=== PATIENT | female | born 2000 | race Two or more races ===

== ENCOUNTER 2023-02-11 21:11 | Emergency (ER) | payer OTHER, SELFPAY ==
[2023-02-11] VITALS (10 sets, daily range): BP systolic 100–122; BP diastolic 60–90; PULSE 102–116; RESP 17–28; TEMP 37; O2SAT 100
--- NOTE | 2023-02-11 22:07 | PC.NURSE ---
When this RN brought pt into triage room to swab her for COVID, pt reports to this RN that she's having lower abdominal pain. OB notified and states they will come evaluate pt when she gets to a room. boiler installer notified. Place pt in room 9 per electrical discharge machine operator.
--- NOTE | 2023-02-11 22:13 | PC.NURSE ---
OB notified that pt has been placed in a room.
[2023-02-11 22:49] LABS: Influenza A QL RT-PCR Negative (Negative); Influenza B QL RT-PCR Negative (Negative); RSV RNA, RT-PCR Negative (Negative); SARS-CoV-2 RNA PCR Negative (Negative)
--- NOTE | 2023-02-11 23:09 | PC.NURSE ---
OB nurse evaluated patient; she states baby is doing well.
[2023-02-12] VITALS (13 sets, daily range): BP systolic 115–127; BP diastolic 50–76; PULSE 77–112; RESP 16–24; O2SAT 99–100
--- NOTE | 2023-02-12 00:09 | ED.GENADULT ---
HPI - General Adult General Chief complaint: Headache Stated complaint: Bodyaches, headache, 24 weeks Time Seen by Provider: 02/11/23 23:00 Source: patient Mode of arrival: ambulatory Limitations: no limitations History of Present Illness HPI narrative: Patient is a 22 y/o female who presents to the ED with c/o URI sx's. Patient reports she woke up this morning with myalgias, headache, mild cough, congestion, rhinorrhea, bilateral ear ache, subjective fevers. Patient is currently 24 weeks . She denies any significant abdominal pain, nausea, vomiting, vaginal bleeding. She does have some discomfort throughout lower abdomen with coughing, but denies pain at rest. She has not tried anything for her sx's. Denies any known sick contacts. Denies CP or SOB. Related Data Allergies Allergy/AdvReac Type Severity Reaction Status Date / Time No Known Allergies Allergy Unknown Verified 02/11/23 22:24 Review of Systems Review of Systems: CONSTITUTIONAL: See HPI. ENT: See HPI. CARDIOVASCULAR: Denies chest pain. RESPIRATORY: See HPI. GASTROINTESTINAL: See HPI. GENITOURINARY: Denies vaginal bleeding, dysuria or hematuria. SKIN: Denies rash or itching. MUSCULOSKELETAL: Reports myalgias. NEUROLOGIC: See HPI. All systems reviewed & are unremarkable except as noted in HPI and below PMFSH Past Medical History Medical History (Updated 02/12/23 @ 02:09 by Elsa Wells PA-C) No pertinent past medical history Surgical History Surgical History (Updated 02/12/23 @ 00:48 by Elsa Wells PA-C) No pertinent past surgical history Social History Social History (Updated 02/12/23 @ 00:48 by Elsa Wells PA-C) Smoking status: Never smoker Exam Narrative: GENERAL: Well appearing, well-nourished, non-toxic, in no acute distress. HEAD: Normocephalic, atraumatic. EYES: PERRLA/EOMI, conjunctiva clear. No drainage. ENT: Minimal posterior pharynx erythema, no tonsillar hypertrophy or exudate. Uvula midline. TMs bilaterally minimally erythematous, no bulging. No significant swelling or redness of EAC bilaterally. NECK: Supple. Mild tender bilateral lymphadenopathy, no masses. RESPIRATORY: Airway patent, respirations nonlabored. Clear to auscultation bilaterally, no rales, rhonchi, wheezing. CARDIOVASCULAR: Regular rate and rhythm without murmurs, rubs, or gallops. Radial pulses 2+ and equal bilaterally. ABDOMINAL: Soft, uterus gravid, nontender, nondistended, no hepatosplenomegaly. Normoactive BS. MUSCULOSKELETAL: Moves all extremities. Strength/ROM intact without gross deformities. SKIN: Warm, dry, normal color. No rashes. NEURO: A&O X3. Speech clear. Cranial nerves II-XII grossly intact. Steady gait. No ataxic movements. PSYCHIATRIC: Appropriate mood and affect. Normal interaction. Course Vital Signs Vital signs: Vital Signs Temperature 98.6 F 02/11/23 21:15 Pulse Rate 111 H 02/11/23 21:15 Respiratory Rate 18 02/11/23 21:15 Blood Pressure 109/60 02/11/23 21:15 Pulse Oximetry 100 02/11/23 21:15 Oxygen Delivery Room Air 02/11/23 21:15 Temperature 98.6 F 02/11/23 21:15 Pulse Rate 106 H 02/12/23 01:01 Respiratory Rate 23 H 02/12/23 01:01 Blood Pressure 115/58 L 02/12/23 01:01 Pulse Oximetry 100 02/12/23 00:01 Oxygen Delivery Room Air 02/11/23 21:15 Medical Decision Making [facility] Narrative Medical decision making narrative: Patient presented to ED with 1 day history of mild URI symptoms. Patient mildly tachycardic upon arrival, afebrile. No concerning signs or symptoms on exam. She is currently 24 weeks gestation. Patient did report having some lower abdominal pain with coughing, but denied pain at rest. She was evaluated by OB in the ED and no abnormalities noted with baby. Strong FHT. Urine without signs of infection or proteinuria. Patient's influenza, RSV, COVID-negative. Strep testing positive. Patient given fluids and Tylenol in the ED,
[2023-02-12] MEDS: SODIUM CHLORIDE 0.9% IV 1,000 ML 999 ML IV CONT ×2 (00:38→01:28)
[2023-02-12 01:47] LABS: Appearance Urine Clear (Clear); Bacteria Urine None Seen /hpf; Bilirubin Urine Negative (Negative); Color Urine Yellow (Yellow); Glucose Urine UA Negative (Negative); Ketones Urine Negative (Negative); Leukocyte Esterase Ur Trace LEU/UL (Negative); Nitrate Urine Negative (Negative); Non Pathogenic Casts 0-2; Protein Urine Negative (Negative); Specific Grav Ur 1.011 (1.001-1.035); Squamous Epithelial Cell Urine Occasional /hpf (Few); WBC Urine 0-5 /hpf
[2023-02-12 01:54] LABS: Add Urine Microscopic? YES
[2023-02-12 02:02] LABS: Strep Group A RT-PCR DETECTED (Negative)
[2023-02-12] MEDS: AMOXICILLIN 500 MG CAPSULE PO (02:18)
== END 2023-02-12 02:23 | disposition home or self-care (01) ==
PROVIDERS: Emergency Medicine; Emergency Provider Physician Assistant
DX: O99.512 Diseases of the respiratory system complicating pregnancy, second trimester (principal); J02.0 Streptococcal pharyngitis; Z3A.24 24 weeks gestation of pregnancy; Z20.822 Contact with and (suspected) exposure to COVID-19
CPT/HCPCS: 81001; 87637; 87651; 96361; 96365; 99284; A9270; J0131; J7030

== ENCOUNTER 2023-03-30 00:13 | Outpatient (CLI) | payer OTHER, SELFPAY | END 2023-03-30 01:05 | disposition home or self-care (01) | LOC: ANHOBOP 01:00 → ANHLDR 01:02 | PROVIDERS: Visit Provider Obstetrics & Gynecology | DX: O42.90 Premature rupture of membranes, unspecified as to length of time between rupture and onset of labor, unspecified weeks of gestation (principal); Z3A.00 Weeks of gestation of pregnancy not specified | CPT/HCPCS: 59025; 99199 ==

== ENCOUNTER 2023-09-03 18:17 | Emergency (ER) | payer OTHER, SELFPAY ==
[2023-09-03 20:18] LABS: Alanine Aminotransferase 19 U/L (6-35); Alkaline Phosphatase 68 U/L (38-126); Anion Gap 10 mmol/L (8-16); Aspartate Amino Transferase 23 U/L (14-36); Bilirubin,Total 0.8 mg/dL (0.2-1.3); Blood Urea Nitrogen 19 mg/dL (7-17); Calcium 9.2 mg/dL (8.4-10.2); Carbon Dioxide 23 mmol/L (22-30); Chloride 107 mmol/L (98-107); Estimated CRCL calculation 101 ml/min; Estimated Glomerular Filt Rate > 60; Glucose 92 mg/dL (65-110); Lipase 103 U/L (23-300); Potassium 4.2 mmol/L (3.4-5.0); Sodium 140 mmol/L (137-145)
[2023-09-03 20:19] LABS: Basophils Percent Auto 0.3 % (0.2-1.2); Eosinophils Absolute Auto 0.1 K/mm3 (0-0.3); Eosinophils Percent Auto 1.2 % (0-4.4); Hematocrit 43.7 % (37.0-47.0); Hemoglobin 14.3 g/dL (12.0-15.0); Immature Granulocyte Absolute 0.03 K/mm3 (0.00-0.031); Immature Granulocyte Percent A 0.3 % (0-0.5); Lymphocytes Absolute Auto 0.98 K/mm3 (0.9-3.2); Lymphocytes Percent Auto 10.7 % (18.3-44.2); Mean Corpuscular HGB Conc 32.7 g/dl (32-36); Mean Corpuscular Hemoglobin 29.5 pg (26-34); Mean Corpuscular Volume 90.1 fl (80-100); Mean Platelet Volume 9.1 fl (7.4-10.4); Monocytes Absolute Auto 0.4 K/mm3 (0.1-0.6); Monocytes Percent Auto 4.1 % (2.6-8.5); Neutrophils Absolute Auto 7.6 K/mm3 (1.3-6.7); Neutrophils Percent Auto 83.4 % (45.5-73.1); Platelet Count Result 312 k/mm3 (150-375); Red Blood Count 4.85 M/mm3 (4.2-5.4); Red Cell Distribution Width 13.2 % (11.5-14.5); White Blood Count 9.1 K/mm3 (4.5-10.0)
[2023-09-03 20:25] LABS: Appearance Urine Clear (Clear); Bacteria Urine None Seen /hpf; Bilirubin Urine Negative (Negative); Blood Urine 2+ (Negative); Color Urine Yellow (Yellow); Glucose Urine UA Negative (Negative); Ketones Urine 2+ mg/dL (Negative); Leukocyte Esterase Ur Negative LEU/UL (Negative); Nitrate Urine Negative (Negative); Non Pathogenic Casts 0-2; Protein Urine Trace mg/dL (Negative); RBC Urine 0-2 /hpf (0-2); Specific Grav Ur 1.035 (1.001-1.035); Squamous Epithelial Cell Urine None seen /hpf (Few); Urobilinogen Urine 0.2 mg/dL (<2.0); WBC Urine 0-5 /hpf; pH Urine 5.5 (5.0-9.0)
[2023-09-03 20:31] LABS: Add Urine Microscopic? YES
--- NOTE | 2023-09-03 21:27 | ED.ABDPAIN ---
HPI - Abdominal Pain General Chief Complaint: Abdominal Pain Stated Complaint: abd pain Time Seen by Provider: 09/03/23 21:18 History of Present Illness HPI narrative: 23-year-old female reports for evaluation for nausea and vomiting that started this morning. Patient reports intermittent epigastric abdominal pain that occurs when she vomits. She denies dysuria, hematuria, flank pain, chest pain shortness of breath, cough or congestion, fever, diarrhea. She is currently on her period and states she has to change her pad or tampon every 5-6 hours. Related Data Allergies Allergy/AdvReac Type Severity Reaction Status Date / Time No Known Allergies Allergy Unknown Verified 02/11/23 22:24 Review of Systems Review of Systems: CONSTITUTIONAL: Denies fever, chills, or sweats. EYES: Denies visual changes, redness, or discharge. ENT: Denies rhinorrhea, congestion, sore throat, or otalgia. CARDIOVASCULAR: Denies chest pain, palpitations, or edema. RESPIRATORY: Denies cough or dyspnea. GASTROINTESTINAL: See HPI GENITOURINARY: Denies dysuria or hematuria. SKIN: Denies rash or itching. MUSCULOSKELETAL: Denies back pain, joint pain, or myalgia. NEUROLOGIC: Denies headache, numbness, or weakness. PSYCHIATRIC: Denies anxiety or depression. [facility] Past Medical History Medical History No pertinent past medical history Surgical History Surgical History No pertinent past surgical history Social History Social History Smoking status: Never smoker Exam Narrative: GENERAL: Well-appearing, well-nourished, and in no acute distress. HEAD: Normocephalic, atraumatic. EYES: PERRLA and EOMI. ENT: Nares clear, no rhinorrhea or epistaxis. Mucous membranes moist. NECK: Supple. CHEST: Clear to auscultation. No respiratory distress. HEART: Regular rate and rhythm. No murmur heard. Normal peripheral pulses. ABDOMEN: Soft, nontender, nondistended, normal active bowel sounds. No CVA tenderness. No overlying skin changes. EXTREMITIES: Normal range of motion. No edema. SKIN: Warm, dry, no rash. NEURO: No focal deficits. Alert and oriented x3 Course Vital Signs Vital signs: Vital Signs Pulse Rate 80 09/03/23 21:39 Blood Pressure 130/80 09/03/23 21:39 Pulse Oximetry 98 09/03/23 21:39 Pulse Rate 80 09/03/23 21:39 Blood Pressure 130/80 09/03/23 21:39 Pulse Oximetry 98 09/03/23 21:39 MDM - Abdominal Pain MDM Narrative Medical decision making narrative: 23-year-old female reports for evaluation for nausea and vomiting that started this morning. See HPI for further history. Vitals are stable and she is afebrile. Abdomen is soft and nontender patient is well-appearing on exam. CBC without leukocytosis or anemia. Chemistries are largely unremarkable. Urinalysis shows 2+ ketones and 2+ blood which is likely secondary to current period. Lipase normal. test negative. CT scan not felt needed at this time given benign abdominal exam, reassuring labs and vitals. Labs and imaging discussed with the patient. She received IV fluids, Pepcid and Zofran with improvement in symptoms. She is tolerating p.o. intake. Plan to discharge her home with Zofran and encourage brat diet close PCP follow-up. Strict ED return precautions discussed. She is agreeable to plan verbalized understanding. Discharged in stable condition. Lab Data 09/03/23 19:59 09/03/23 19:59 Labs: Lab Results 09/03/23 Range/Units 19:59 WBC 9.1 (4.5-10.0) K/mm3 RBC 4.85 (4.2-5.4) M/mm3 Hgb 14.3 (12.0-15.0) g/dL Hct 43.7 (37.0-47.0) % MCV 90.1 (80-100) fl MCH 29.5 (26-34) pg MCHC 32.7 (32-36) g/dl RDW 13.2 (11.5-14.5) % Plt Count 312 (150-375) k/mm3 MPV 9.1 (7.4-10.4) fl Immature Gran % (Auto)
[2023-09-03] MEDS: SODIUM CHLORIDE 0.9% IV 1,000 ML 999 ML IV CONT (21:38)
[2023-09-03 21:39] VITALS: BP 130/80; PULSE 80; O2SAT 98
[2023-09-03] MEDS: FAMOTIDINE 20 MG/2 ML VIAL IV PUSH (21:39)
[2023-09-03] MEDS: ONDANSETRON INJ 4 MG/2 ML VIAL IV PUSH (21:39)
[2023-09-03 22:40] VITALS: BP 130/81; PULSE 73; RESP 18; TEMP 36.2; O2SAT 100
== END 2023-09-03 23:28 | disposition home or self-care (01) ==
PROVIDERS: Emergency Medicine; Emergency Provider Physician Assistant
DX: K52.9 Noninfective gastroenteritis and colitis, unspecified (principal)
CPT/HCPCS: 36415; 80053; 81001; 81025; 83690; 85025; 96361; 96374; 96375; 99284; J2405; J7030

== ENCOUNTER 2024-02-16 12:35 | Emergency (ER) | payer MEDICAID, SELFPAY ==
[2024-02-16 12:38] VITALS: BP 125/98; PULSE 89; RESP 18; TEMP 36.4; O2SAT 100
[2024-02-16 15:10] VITALS: BP 143/91; PULSE 87; RESP 18; O2SAT 100
[2024-02-16] MEDS: HYDROcodone/acetaminophen (*CRX) 5-325 MG TABLET 1 TAB PO (16:07)
--- NOTE | 2024-02-16 16:21 | ED.DENTAL ---
HPI - Dental/Oral General Chief complaint: Dental/Oral Stated complaint: dental pain Time Seen by Provider: 02/16/24 15:50 History of Present Illness HPI Narrative: Patient is a 23-year-old female who presents ER with left-sided dental pain. Tooth 19. Worse with solids and liquids. Mild swelling to the jaw bone. No fevers or chills. No difficulty breathing or swallowing. Has a known fractured tooth at this area. Related Data Allergies Allergy/AdvReac Type Severity Reaction Status Date / Time No Known Allergies Allergy Unknown Verified 02/11/23 22:24 Review of Systems Constitutional: Constitutional: Reports no additional constitutional complaints ENT: Reports system reviewed and no additional complaints, except as documented PMFSH Past Medical History Medical History No pertinent past medical history Surgical History Surgical History No pertinent past surgical history Social History Social History Smoking status: Never smoker Exam Narrative: GENERAL: Well-appearing, well-nourished, and in no acute distress. HEAD: Normocephalic, atraumatic. ENT: Mucous membranes moist. Tender tooth 19. Where there is a fracture. Mild swelling to the lower jaw on left side. Normal-appearing posterior oropharynx. No fluctuant abscess. NECK: Supple. NEURO: Alert and oriented x3. PSYCH: Normal mood and affect. Course Course Emergency Course: Patient has a ride home. [place] x1 here. Discharged with antibiotics and pain control. Vital Signs Vital signs: Vital Signs Temperature 97.5 F L 02/16/24 12:38 Pulse Rate 89 02/16/24 12:38 Respiratory Rate 18 02/16/24 12:38 Blood Pressure 125/98 H 02/16/24 12:38 Pulse Oximetry 100 02/16/24 12:38 Oxygen Delivery Room Air 02/16/24 12:38 Temperature 97.5 F L 02/16/24 12:38 Pulse Rate 87 02/16/24 15:10 Respiratory Rate 18 02/16/24 15:10 Blood Pressure 143/91 H 02/16/24 15:10 Pulse Oximetry 100 02/16/24 15:10 Oxygen Delivery Room Air 02/16/24 12:38 Discharge Plan Discharge Clinical Impression: Toothache Patient Disposition: Home, Self-Care Condition: Stable Instructions: Toothache (ED) Additional Instructions: Return the ER if you can not breathe, cannot swallow, you cannot keep down food/water/ medication, or you have additional concerns. Find a dentist to extract your tooth. Prescriptions: New hydrocodone-acetaminophen 5-325 mg tablet 1 tablet PO Q6H PRN (Reason: pain) Qty: 12 0RF amoxicillin-pot clavulanate 875-125 mg tablet 1 tablet PO Q12H Qty: 20 0RF No Action amoxicillin 500 mg capsule 500 mg PO Q12H 10 Days Qty: 20 0RF ondansetron 4 mg tablet,disintegrating 4 mg PO Q8H Qty: 20 0RF Follow-up/Referrals: Dental Referral Line [Outside] - 1 Week PHYSICIAN,[employer] [Non-Staff] -
== END 2024-02-16 16:34 | disposition home or self-care (01) ==
LOC: ANHED 16:28
PROVIDERS: Emergency Provider Emergency Medicine
DX: K08.89 Other specified disorders of teeth and supporting structures (principal)
CPT/HCPCS: 99283; A9270

== ENCOUNTER 2024-11-19 18:00 | Emergency (ER) | payer SELFPAY ==
--- OUTSIDE RECORDS SUMMARY | 2024-11-19 18:03 | XMS_ITS | Referral Summary ---
Author Organization [facility] Address [address] [place] [id number] Care Team Providers Care Computer Networker Name Role Phone No, Physician Primary Care Provider Kenisha Schmidt MD Unavailable [phone] Allergies No known active allergies Medications vit 79-[id number]-[id number]-[id number] 27mg iron- 800 mcg-250 mg capsule Take by mouth Active sertraline (ZOLOFT) 50 mg tablet Take 1 tablet (50 mg total) by mouth daily 30 tablet 5 07/05/20 Active Additional Information Patient not taking.Reported on 08/11/2023 ondansetron ODT (ZOFRAN-ODT) 4 mg disintegrating tablet Take 1 tablet (4 mg total) by mouth every 8 (eight) hours as needed for nausea or vomiting 20 tablet 1 07/05/20 Active Additional Information Patient not taking.Reported on 08/11/2023 Hospital, Clinic, or Other Facility Administered Medication Ordered Dose Route Frequency Start Date End Date Status etonogestreL (NEXPLANON) implant 68 mgIndications:Pregna ncy Contraception 68 mg subderm Continuous (implanted device) 07/19/2023 07/18/2026 Active Active Problems Problem Noted Date Diagnosed Date anxiety 07/05/2023 care following vaginal delivery 05/06 Overview (05/07/2023): 05/06/23, PPD#1 (SO): , with intact perineum A+/rubella immune Mostly normotensive with an occasional mildly elevated BP. Is asymptomatic for pre-e Will order PIH labs for tomorrow before discharge without difficulty Is ambulating and voiding without difficulty Continue routine care 05/07/23, PPD#2 (BD): , with intact perineum A+/rubella immune Mostly normotensive with an occasional mildly elevated BP. Is asymptomatic for pre-e, PIH labs - wnl without difficulty Is ambulating and voiding without difficulty Mood stable - on zoloft 25mg daily. Continue routine care, anticipate D/C home today with 1wk BP and mood check. Encounter for elective induction of labor 2022 Overview (05/07/2023): 05/05/2023 1300 (CZ) 22 yo @ 39w0d here for induction of labor for 2V cord. Her is complicated by Anxiety (Taking Zoloft), Anemia, and 2V Cord. A+, Rubella Immune Hgb 10.2 GBS Negative Reactive tracing Cervix 2/70/-2 Plan OT titration per protocol Consider AROM when appropriate Anticipate 05/05/2023 1400 (CZ) VSS, afebrile Patient comfortable with epidural Reactive tracing Cervix 3/80/-2 AROM performed with patient consent. Small amount of clear odorless fluid. Continue OT titration per protocol Anticipated 05/05/2023, 2039 (Graciela): Comfortable with epidural after bolus Pitocin at 6 mU/min FHT category 1 10/100/0 Will set up to start pushing Anticipate Two vessel umbilical cord, antepartum, single ge station 03/15/2023 Supervision of other normal , antepartu m 01/18/2023 Overview (05/07/2023): Surveillance of : late onset care EDC by 23 week Labs: A+/I/-/-, Hep C, HIV NR Genetics: Declines Anatomy: complete 02/15/23, EFW 27% GCT: Passed 92 3rd trim Hgb 10.1, otherwise normal Tdap: 03/01/23 GBS negative COVID Vaccine: completed Social Barriers: pt main language is Setswana but she does speak Vincentian. Pt states she does not need an interpretor Mode of feeding: both, has a pump Method of contraception: Desires Mirena Delivery Plannin weeks, 05/05 @ 9 pm Anxiety: Zoloft 25 mg initiated 02/15, hydroxyzine PRN, assess mood every visit. Anemia: Hgb 10.1 > 10.8 on PO iron supplementation 2V Cord: Serial growth US q4wks 02/15 - 27% 6 - 40% 7 - 64%ile Weekly monitoring @ 36 wks Recommend delivery @ 39 wks - scheduled Ganglion cyst 06/24/2022 Assessment & Plan (06/24/2022 2:27 PM CDT): Ruptured Will f/u next appt She was told it may come back. Resolved Problems Problem Noted Date Diagnosed Date Resolved Date Encounter for evaluation reg arding contraception options 07/20/2022 01/18/2023 Miscarriage 07/02/2022 01/18/2023 Assessment & Plan (07/20/2022 12:08 PM CDT): Doing well post op She is still taking her iron. She is wanting contraception Options dicussed To ocn The patient is going to start on oral contraceptives today risks benefits and alternatives were reviewed including nausea, hypertension, and risk of DVT. Patient was asked to return to the office in 3 months for blood pressure check. We discussed that oral contraceptives will keep her from getting when taken correctly. Condom use was encouraged at all times, especially in the 1st pack. We discussed that the patient should take 1 pill a day. If she forgets to take her pills she should take it as soon as she remembers. The patient was encouraged to call with any questions. Incomplete with del ayed or excessive hemorrhage 07/02/2022 07/20/2022 Missed 06/18/2022 01/18/2023 Overview (06/24/2022): rto 2 week To get a beta beforehand Assessment & Plan (06/24/2022 2:30 PM CDT): rto 2 weeks To get beta before We discussed that I am not sure when to expect her bleeding as there is not a good correlation with the beta and actual bleeding Will get the sock turner Assessment & Plan (06/18/2022 2:15 PM CDT): We discussed her options She will watch and wait We discussed what she can expect Bleeding precautions given. rto 1 week To repeat the beta Tuesday. Immunizations Name Administration Dates Next Due Tdap 03/01/2023 Social History Tobacco Use Types Packs/Day Years Used Date Smoking Tobacco: Former Cigarettes Tobacco Cessation:Counseling Given: Not Answered AUDIT-C Answer Date Recorded Q1: How often do you have a drink containing alcohol? Never 06/18/2022 Q2: How many drinks containi ng alcohol do you have on a typical day when you are drinking? Patient does not drink Q3: How often do you have si x or more drinks on one occasion? Never 06/18/2022 [place] Depression Scale Answer Date Recorded [place] Depression Scale Total 11 07/19/2023 The thought of harming myself has occurred to me . Never 07/19/2023 Comments Unknown Sex and Gender Information Value Date Recorded Sex Assigned at Not on file Legal Sex Female 12:01 PM CDT Gender Identity Not on file Sexual Orientation Not on file Last Filed Vital Signs Vital Sign Reading Time Taken Comments Blood Pressure 110/60 02/14/2024 11:55 AM CDT Pulse 63 05/07/2023 9:20 AM CDT Temperature 36.9 C (98.5 F) 05/07/2023 9:20 AM CDT Respiratory Rate 16 05/07/2023 9:20 AM CDT Oxygen Saturation 100% 05/07/2023 9:20 AM CDT Inhaled Oxygen Concentration - - Weight 59.4 kg (131 lb) 02/14/2024 11:55 AM CDT Height 172.7 cm (5' 7.99 ) 02/14/2024 11:55 AM C DT Body Mass Index 19.92 02/14/2024 11:55 AM CDT Plan of Treatment Not on file Procedures Procedure Name Priority Date/Time Associated Diagnosis Comments HIGH RISK HPV DNA DETECTION WITH GENOTYPING Routine 02/14/2024 12:28 PM CDT Encounter for screening for malignant neoplasm of cervix N. GONORRHOEAE/C. TRACHOMATIS AMPLIFICATION Routine 01/18/2023 12:35 PM CDT Screening for STD (sexually transmitted disease) HEPATITIS C ANTIBODY Routine 01/18/2023 11:45 AM CDT Missed menses from Last 3 Months or Most Recently Relevant to Health Maintenance Results * (ABNORMAL) High Risk HPV DNA Detection with Genotyping (Molecular component) (02/14/2024 12:28 PM CDT) HPV HR 16 Not Detected Not Detected [facility] Comment:Testing performed by : [facility], [address] [place]., [address] HPV HR 18 Not Detected Not Detected [facility]ANNING Comment:Testing performed by : [facility], [address] [place]., [address] HPV HR Non 16/18 Detected(A) Not Detected [facility] Comment: Interpretive Data Nucleic acid amplification for detection of high-risk Human Papilloma virus (HPV) is performed by the Maci Delmy 6800 HPV test. This assay specifically detects HPV-16 and HPV-18 genotypes. The following HPV genotypes are detected as high-risk HPV: HPV-31, 33, 35, ,39, 45, 51, 52, 56, 58, 59, 66, and 68. This assay has been approved by the [place] Food and Drug Administration for detection of HPV in cervical specimens collected by a physician using an endocervical brush/spatula or cervical broom and placed in the ThinPrep Pap Test PreservCyt collection containers. The performance characteristics of this test have been verified by the [facility] Molecular Infectious Disease laboratory. Correlate with separately reported cytology results, as applicable. Interpretive data last revised 23 Testing performed by: [facility], [address] [place]., [address] Endocervical 02/14/2024 12:2 8 PM CDT 02/15/2024 9:18 AM CDT Narrative SURJIT MANNING - 02/16/2024 5:47 AM CDT Clinical history and diagnosis->screen Number of vials->1 Testing type->Screening Last menstrual period (date if known)->02/07/2024 Nicki HERNANDEZ LAB BODY FLUIDS AND STOOLS ORDERABLES Final Result Performing Organization Address City/[facility] Co de Phone Number SURJIT [address] [address] [facility] * N. gonorrhoeae/C. trachomatis Amplification Urine (01/18/2023 12:35 PM CDT) C. trachomatis Not Detected Not Detected [facility] Comment:Testing performed by : [facility], [address] [place] [address]., [address] N. gonorrhoeae Not Detected Not Detected [facility] Comment: Interpretive Data Testing performed by the [facility]. This assay detects Chlamydia trachomatis and Neisseria gonorrhoeae by nucleic acid amplification testing (NAAT). This test is approved by the [facility] Food and Drug Administration and the performance characteristics have been verified by the laboratory. The performance characteristics of this test have not been evaluated in individuals less than 14 years of age. Current Interpretive Data was last revised on 2019. Testing performed by: [facility], [address] [place] [address]., [id number] Urine (None) 01/18/2023 12:3 5 PM CDT 01/18/2023 5:04 PM CDT Nicki HERNANDEZ LAB MICROBIOLOGY - GENERAL ORDERABLES Final Result Performing Organization Address [facility] Co de Phone Number SURJIT [address] [place] [address] * Hepatitis C antibody (01/18/2023 11:45 AM CDT) Hep C Ab Nonreactive Nonreactive [facility] Comment: Interpretive Data Nonreactive: Antibodies to HCV not detected. Does NOT exclude the possibility of recent exposure to HCV. Equivocal: Equivocal for HCV antibodies. Supplemental molecular testing will be automatically performed to determine infection status in accordance with current CDC screening recommendations. Reactive: Positive for HCV antibodies. This may represent current or past HCV infection. Supplemental molecular testing will be automatically performed to determine current infection status in accordance with current CDC screening recommendations. Interpretive data was last revised on 2019. Blood 01/18/2023 11:4 5 AM CDT 01/18/2023 5:19 PM CDT Nicki Garcia CNM LAB MICROBIOLOGY - GENERAL ORDERABLES Final Result Performing Organization Address City/State/ZIP Co mi Phone Number [facility] [address] [facility] Department [place] [address] from Last 3 Months or Most Recently Relevant to Health Maintenance Insurance IDPA IDPA IDPA Advance Directives For more information, please contact: [phone] * Full Code (Latest Code Status on File) Date Activated Date Inactivated Comments 05/05/2023 11:52 PM 05/07/2023 5:00 PM * Full Code Date Activated Date Inactivated Comments 05/05/2023 9:47 AM 05/05/2023 11:52 PM Full CPR in case of cardiopulmonary arrest Care Teams Computer Networker Relationship Specialty Start Date End Date No, Physician PCP - General 06/09/22 Kenisha Schmidt MD [id number] [place] [address] Consulting Physician Obstetrics and Gynecology 07/02/22
--- OUTSIDE RECORDS SUMMARY | 2024-11-19 18:03 | XMS_ITS | Clinical Summary ---
Author Organization [facility] Medical Office Building B Address [address] [place] [id number] Care Team Providers Care Preform Plate Maker Name Role Phone No, Physician Primary Care Provider [phone] Kenisha Schmidt MD Unavailable [phone] Allergies No known active allergies Medications vit 70-kazb-jnnhe-dha 27mg iron- 800 mcg-250 mg capsule Take [...] completed Social Barriers: pt main language is Faroese but she does speak Moldovan. Pt states she does not need an [...] beta and actual bleeding Will get the sign language interpreter Assessment & Plan (06/18/2022 2:15 PM CDT): We discussed her options She will watch and wait We discussed what she can expect Bleeding precautions given. rto 1 week To repeat the beta Tuesday. Immunizations Name Administration Dates Next Due Tdap 03/01/2023 Surgical History Surgery Date Site/Laterality Comments DILATION AND CURETTAGE OF UTERUS Medical History Medical History Date Comments Anemia Incomplete with delayed or excessive he morrhage 07/02/2022 Depression Family History Medical History Relation Name Comments No Known Problems Father No Known Problems Mother Breast cancer Neg Hx Colon cancer Neg Hx Ovarian cancer Neg Hx Uterine cancer Neg Hx Relation Name Status Comments Father Alive Mother Alive Social History Tobacco Use Types Packs/Day Years [...] more drinks on one occasion? Never 06/18/2022 [place] Depression Scale Answer Date Recorded [place] Depression Scale Total 11 07/19/2023 The thought of harming myself has occurred to me . Never 07/19/2023 Comments Unknown Sex and Gender Information Value Date Recorded Sex Assigned at Not on file Legal Sex Female 12:01 PM CDT Gender Identity Not on file Sexual Orientation Not on file Obstetrics History Para Term AB IAB SAB Ectopic Multiple Livin g Live Births 5 3 3 2 2 0 3 3 Date Outcome GA Total Labor Labor/2nd/3rd Weight Sex Type Anes PTL Kayleigh A1 A5 Name Clin 2018 Term 42w 0d 2.722 kg (6 lb) M Vag-Sp ont Epidur al Livin g Complications:None Delivery Location:[place] 2019 SAB 2020 Term 38w 0d 2.722 kg (6 lb) F Vag-Sp ont Epidur al Livin g Complications:None Delivery Location:[place] SAB D&C 2022 Term 39w 0d 9h 46m 7h 37m/1h 59m/0h 10m 3.51 kg (7 lb 11.8 oz) M Vagina l Epidur al N Livin g 9 9 HAZIZ I,BOY MISGianna Cool MD Complications:None Delivery Location:[facility] Main C ampus ([facility]) Last Filed Vital Signs Vital Sign Reading [...] 02/14/2024 11:55 AM CDT Plan of Treatment Health Maintenance Due Date Last Done Comments Varicella Vaccines (1 of 2 - 13+ 2-dose series) 2013 HPV Vaccines (1 - 3-dose series) 2015 Hepatitis B Screening 2018 Chlamydia and Gonorrhea (GC/CT) Screening 01/19/2024 01/18/2023 Covid-19 Vaccine (2023-2 5 season) 2024 10/21/2021, 04/22/2021, 04/01/2021 Influenza Vaccine (#1) 2024 Depression Screening 07/19/2024 07/19/2023 Cervical Cancer Screening 02/13/20252023, 02/14/2024 Regular Well Visit/Exam 18-64 02/13/2025 02/14/2024 DTaP/Tdap/Td Vaccine (3 - Td or Tdap) 03/01/2033 03/01/2023, 01/19/2021 Hepatitis C Screening Completed 01/18/2023 Pneumococcal vaccine <65 Aged Out No longer eligible based on patient's age to complete this topic Procedures Procedure Name Priority Date/Time Associated Diagnosis [...] HPV HR 16 Not Detected Not Detected [facility] Comment:Testing performed by : [facility], [address] [place]., [address] HPV HR 18 Not Detected Not Detected SURJIT MANNING Comment:Testing performed by : [facility], [address] [place]., [address] HPV HR Non 16/18 Detected(A) Not Detected [...] this test have been verified by the [facility] Molecular Infectious Disease laboratory. Correlate with separately reported cytology results, as applicable. Interpretive data last revised 23 Testing performed by: [facility], [address] [place]., [address] Endocervical 02/14/2024 12:2 8 PM CDT 02/15/2024 9:18 AM CDT Narrative SURJIT MANNING - 02/16/2024 5:47 AM CDT Clinical history and diagnosis->screen Number of vials->1 Testing type->Screening Last menstrual period (date if known)->02/07/2024 Nicki Garcia CNM LAB BODY FLUIDS AND STOOLS ORDERABLES Final Result Performing Organization Address [facility] de Phone Number SURJIT [facility] Department [place] [address] [facility] * N. gonorrhoeae/C. trachomatis Amplification Urine (01/18/2023 12:35 PM CDT) Pathologist [facility] C. trachomatis Not Detected Not Detected [facility] Comment:Testing performed by : [facility], [address] [place] [address]., [address] N. gonorrhoeae Not Detected Not Detected [facility] Comment: Interpretive Data Testing performed by the [facility]. This assay detects Chlamydia trachomatis and Neisseria gonorrhoeae by nucleic acid amplification testing (NAAT). This test is approved by the [facility] Food and Drug Administration and the performance characteristics have been verified by the laboratory. The performance characteristics of this test have not been evaluated in individuals less than 14 years of age. Current Interpretive Data was last revised on 2019. Testing performed by: [facility], [address] [place] [address]., [id number] Urine (None) 01/18/2023 12:3 5 PM CDT 01/18/2023 5:04 PM CDT Nicki Garcia CNM LAB MICROBIOLOGY - GENERAL ORDERABLES Final Result Performing Organization Address [facility] de Phone Number SURJIT [address] [facility] Department [place] [address] * Hepatitis C antibody (01/18/2023 11:45 AM CDT) Pathologist [facility] Hep C Ab Nonreactive Nonreactive [facility] Comment: Interpretive Data Nonreactive: Antibodies to HCV [...] LAB MICROBIOLOGY - GENERAL ORDERABLES Final Result SURJIT [address] [facility] Department [place] [address] from Last 3 Months or Most Recently Relevant to Health Maintenance Insurance [employer] IDPA Advance Directives For more information, please contact: [phone] * Full Code (Latest Code Status on File) Date Activated Date Inactivated Comments 05/05/2023 11:52 PM 05/07/2023 5:00 PM * Full Code Date Activated Date Inactivated Comments 05/05/2023 9:47 AM 05/05/2023 11:52 PM Full CPR in case of cardiopulmonary arrest Care Teams Preform Plate Maker Relationship Specialty Start Date End Date No, Physician PCP - General 06/09/22 Kenisha Schmidt MD [address] [place], [place] [id number] Consulting Physician Obstetrics and Gynecology 07/02/22
[2024-11-19 18:27] VITALS: BP 125/56; PULSE 120; RESP 18; TEMP 37.4; O2SAT 100
--- NOTE | 2024-11-19 18:59 | ED_ITS ---
HPI - Nausea/Vomiting/Diarrhea General Chief complaint: Nausea/Vomiting/Diarrhea <Shanti Bauman PA-C - Last Filed: 11/21/24 19:45> Stated complaint: headache, body aches <Shanti Bauman PA-C - Last Filed: 11/21/24 19:45> Time Seen by Provider: 11/19/24 18:59 <Shanti Bauman PA-C - Last Filed: 11/21/24 19:45> Focused HPI: This is a 24 year old female that presents to the ER for viral symptoms. Ongoing since last night. Reports cough, vomiting, headache, myalgias, sore throat. GENERAL: Well-appearing, well-nourished, and in no acute distress. HEAD: Normocephalic, atraumatic. CHEST: Clear to auscultation. ?No respiratory distress. HEART: Regular rate and rhythm.? NEURO: ?Alert and oriented x3. Patient screened in triage and initial orders placed.? ?Additional care and disposition to be based upon?diagnostic testing and treatment. <Shanti Bauman PA-C - Last Filed: 11/21/24 19:45> History of Present Illness HPI Narrative: Agree with the above with the following additions/corrections: Nausea/vomiting, headache, myalgias and a dry cough and other cold symptoms. 6 out of 10 pain. In the waiting room for 11.5 hours. She experiences a sharp pain on her head when vomiting. Having chills. Headache is at her bilateral temples with some photophobia. Non smoker with no underlying respiratory conditions. Had presented with her son who tested positive for the flu and went home with another family member in the interim. Subjective fevers at home (not measured). <Anastasia Alston MD - Last Filed: 11/22/24 08:53> Related Data Allergies/Adverse reactions: Allergies Allergy/AdvReac Type Severity Reaction Status Date / Time No Known Allergies Allergy Unknown Verified 02/11/23 22:24 <Shanti Bauman PA-C - Last Filed: 11/21/24 19:45> Review of Systems 2 Review of Systems: All systems reviewed & are unremarkable except as noted in HPI and below <Shanti Bauman PA-C - Last Filed: 11/21/24 19:45> PMFSH Past Medical History Medical History: Medical History No pertinent past medical history <Shanti Bauman PA-C - Last Filed: 11/21/24 19:45> Surgical History Surgical History: Surgical History No pertinent past surgical history <Shanti Bauman PA-C - Last Filed: 11/21/24 19:45> Social History Social History: Social History Smoking status: Never smoker Living arrangements: with family Additional living arrangements comments: has a child Additional occupation/education comments: Not currently employed <Shanti Bauman PA-C - Last Filed: 11/21/24 19:45> Exam 2 Narrative: GENERAL: well-nourished, and in no acute distress. HEAD: Normocephalic, atraumatic. EYES: Non injected, non icteric ENT: Nares clear, no rhinorrhea or epistaxis. Moist mucous membranes. NECK: Supple. CHEST: Speaking in full sentences. No respiratory distress. Non labored. Clear bilaterally. ABDOMEN: Soft, nondistended. EXTREMITIES: Normal range of motion. No lower extremity edema. SKIN: Warm, dry, no rash. NEURO: No focal deficits. Alert and oriented x3. PSYCH: Normal mood and affect. <Anastasia Alston MD - Last Filed: 11/22/24 08:53> Course Vital Signs Vital signs: Vital Signs Temperature 99.3 F 11/19/24 18:27 Pulse Rate 120 H 11/19/24 18:27 Respiratory Rate 18 11/19/24 18:27 Blood Pressure 125/56 L 11/19/24 18:27 Pulse Oximetry 100 11/19/24 18:27 Oxygen Delivery Room Air 11/19/24 18:27 Temperature 101.5 F H 11/20/24 05:44 Pulse Rate 67 11/20/24 08:54 Respiratory Rate 16 11/20/24 08:54 Blood Pressure 105/57 L 11/20/24 08:54 Pulse Oximetry 98 11/20/24 08:54 Oxygen Delivery Room Air 11/20/24 05:40 <Shanti Bauman PA-C - Last Filed: 11/21/24 19:45> Vital Signs Temperature 99.3 F 11/19/24 18:27 Pulse Rate 120 H 11/19/24 18:27 Respiratory Rate 18 11/19/24 18:27 Blood Pressure 125/56 L 11/19/24 18:27 Pulse Oximetry 100 11/19/24 18:27 Oxygen Delivery Room Air 11/19/24 18:27 Temperature 101.5 F H 11/20/24 05:44 Pulse Rate 67 11/20/24 08:54 Respiratory Rate 16 11/20/24 08:54 Blood Pressure 105/57 L 11/20/24 08:54 Pulse Oximetry 98 11/20/24 08:54 Oxygen Delivery Room Air 11/20/24 05:40 <Anastasia Alston MD - Last Filed: 11/22/24 08:53> MDM - Nausea/Vomiting/Diarrhea MDM Narrative Medical decision making narrative: Patient presents with viral symptoms such as nausea, vomiting, fevers/chillls, myalgias and a dry cough. In the ED she is afebrile with VS that show tachycardia and mildly decreased DBP but acceptable. Significant delay between triage and being roomed. In the interim, patient's 2 year old child whom she had presented with has been seen, diagnsed with the flu, and went home with another family member. She test positive for influenza A. She is reassessed at 8:20 a.m.. She has successfully p.o. challenge. We discussed that she would be discharged with a combination of medicines but that these are not to be used by her son, especially the Edilma Cartwright. She verifies understanding. <Anastasia Alston MD - Last Filed: 11/22/24 08:53> Lab Data Attestation: I reviewed the patient's lab results. <Anastasia Alston MD - Last Filed: 11/22/24 08:53> Result diagrams: 11/20/24 05:57 11/20/24 05:57 <Shanti Bauman PA-C - Last Filed: 11/21/24 19:45> Labs: Lab Results 11/20/24 Range/Units 05:57 WBC 5.3 (4.5-10.0) K/mm3 RBC 4.54 (4.2-5.4) M/mm3 Hgb 11.8 L (12.0-15.0) g/dL Hct 37.4 (37.0-47.0) % MCV 82.4 (80-100) fl MCH 26.0 (26-34) pg MCHC 31.6 L (32-36) g/dl RDW 15.0 H (11.5-14.5) % Plt Count 253 (150-375) k/mm3 MPV 9.2 (7.4-10.4) fl Immature Gran % (Auto) 0.2 (0-0.5) % Neut % (Auto) 80.3 H (45.5-73.1) % Lymph % (Auto) 10.3 L (18.3-44.2) % [place] % (Auto) 8.8 H (2.6-8.5) % Eos % (Auto) 0.0 (0-4.4) % Baso % (Auto) 0.4 (0.2-1.2) % Lymph # (Auto) 0.55 L (0.9-3.2) K/mm3 [place] # (Auto) 0.5 (0.1-0.6) K/mm3 Eos # (Auto) 0.0 (0-0.3) K/mm3 Baso # (Auto) 0.0 (0.0-0.1) K/mm3 Abs Immat Gran (auto) 0.01 (0.00-0.031) K/mm3 Absolute Neuts (auto) 4.3 (1.3-6.7) K/mm3 Absolute Nucleated RBC 0.000 (0.0-0.012) K/mm3 Nucleated RBC % 0.0 (0.0-0.2) % Sodium 137 (137-145) mmol/L Potassium 3.7 (3.4-5.0) mmol/L Chloride 101 (98-107) mmol/L Carbon Dioxide 24 (22-30) mmol/L Anion Gap 12 (4-12) mmol/L BUN 12 D (7-17) mg/dL Creatinine 0.63 L (0.7-1.0) mg/dL Estim Creat Clear Calc 116 ml/min Estimated GFR > 60 (59 - ) Glucose 95 (65-110) mg/dL Calcium 9.4 (8.4-10.2) mg/dL Total Bilirubin 0.5 (0.2-1.3) mg/dL AST 24 (14-36) U/L ALT 24 (6-35) U/L Alkaline Phosphatase 60 (38-126) U/L Total Protein 8.0 (6.3-8.2) g/dL Albumin 4.8 (3.5-5.1) g/dL Lipase 64 (23-300) U/L Influenza A (RT-PCR) Positive A (Negative) Influenza B (RT-PCR) Negative (Negative) RSV (RT-PCR) Negative (Negative) SARS-CoV-2 RNA (RT-PCR) Negative (Negative) <Shanti Bauman PA-C - Last Filed: 11/21/24 19:45> Lab Results 11/20/24 Range/Units 05:57 WBC 5.3 (4.5-10.0) K/mm3 RBC 4.54 (4.2-5.4) M/mm3 Hgb 11.8 L (12.0-15.0) g/dL Hct 37.4 (37.0-47.0) % MCV 82.4 (80-100) fl MCH 26.0 (26-34) pg MCHC 31.6 L (32-36) g/dl RDW 15.0 H (11.5-14.5) % Plt Count 253 (150-375) k/mm3 MPV 9.2 (7.4-10.4) fl Immature Gran % (Auto) 0.2 (0-0.5) % Neut % (Auto) 80.3 H (45.5-73.1) % Lymph % (Auto) 10.3 L (18.3-44.2) % [place] % (Auto) 8.8 H (2.6-8.5) % Eos % (Auto) 0.0 (0-4.4) % Baso % (Auto) 0.4 (0.2-1.2) % Lymph # (Auto) 0.55 L (0.9-3.2) K/mm3 [place] # (Auto) 0.5 (0.1-0.6) K/mm3 Eos # (Auto) 0.0 (0-0.3) K/mm3 Baso # (Auto) 0.0 (0.0-0.1) K/mm3 Abs Immat Gran (auto) 0.01 (0.00-0.031) K/mm3 Absolute Neuts (auto) 4.3 (1.3-6.7) K/mm3 Absolute Nucleated RBC 0.000 (0.0-0.012) K/mm3 Nucleated RBC % 0.0 (0.0-0.2) % Sodium 137 (137-145) mmol/L Potassium 3.7 (3.4-5.0) mmol/L Chloride 101 (98-107) mmol/L Carbon Dioxide 24 (22-30) mmol/L Anion Gap 12 (4-12) mmol/L BUN 12 D (7-17) mg/dL Creatinine 0.63 L (0.7-1.0) mg/dL Estim Creat Clear Calc 116 ml/min Estimated GFR > 60 (59 - ) Glucose 95 (65-110) mg/dL Calcium 9.4 (8.4-10.2) mg/dL Total Bilirubin 0.5 (0.2-1.3) mg/dL AST 24 (14-36) U/L ALT 24 (6-35) U/L Alkaline Phosphatase 60 (38-126) U/L Total Protein 8.0 (6.3-8.2) g/dL Albumin 4.8 (3.5-5.1) g/dL Lipase 64 (23-300) U/L Influenza A (RT-PCR) Positive A (Negative) Influenza B (RT-PCR) Negative (Negative) RSV (RT-PCR) Negative (Negative) SARS-CoV-2 RNA (RT-PCR) Negative (Negative) <Anastasia Alston MD - Last Filed: 11/22/24 08:53> Critical Care Time Critical Care Time Critical Care Time: No <Shanti Bauman PA-C - Last Filed: 11/21/24 19:45> Discharge Plan Discharge Clinical Impression: Influenza A <Shanti Bauman PA-C - Last Filed: 11/21/24 19:45> Patient Disposition: Home, Self-Care <RACHNA Roajs Last Filed: 11/21/24 19:45> Condition: Stable <RACHNA Rojas Last Filed: 11/21/24 19:45> Instructions: Antibiotic Form, Influenza (DC) <RACHNA Rojas Last Filed: 11/21/24 19:45> Additional Instructions: Rest and maintain your hydration. Follow-up with your primary care physician. If you do not have 1 the name of the doctors listed below. You can use the following prescribed medications that can help with her symptoms. Honey can also be good for a cough. Acetaminophen/Tylenol (maximum 4000 mg per day) is safe to take with NSAIDs (ibuprofen/Motrin) for pain relief and/or fever. These are dosed for you, not your son (and some are unsafe for children) <RACHNA Rojas Last Filed: 11/21/24 19:45> Patient Language: Hebrew <RACHNA Rojas Last Filed: 11/21/24 19:45> Prescriptions: New ibuprofen 600 mg tablet 600 mg PO TID PRN (Reason: pain) Qty: 30 0RF acetaminophen 500 mg capsule 1,000 mg PO Q6H PRN (Reason: pain) Qty: 30 0RF benzonatate 100 mg capsule 100 mg PO BID PRN (Reason: cough) Qty: 20 0RF Sore Throat and Cough 5-7.5 mg lozenge 2 faiza PO Q4H PRN (Reason: cough) Qty: 18 0RF Rx Instructions: dissolve 2nd lozenge after first; do not chew ondansetron 4 mg tablet,disintegrating 4 mg PO Q8H PRN (Reason: nausea and vomiting) Qty: 7 0RF No Action amoxicillin 500 mg capsule 500 mg PO Q12H 10 Days Qty: 20 0RF hydrocodone-acetaminophen 5-325 mg tablet 1 tablet PO Q6H PRN (Reason: pain) Qty: 12 0RF amoxicillin-pot clavulanate 875-125 mg tablet 1 tablet PO Q12H Qty: 20 0RF ondansetron 4 mg tablet,disintegrating 4 mg PO Q8H Qty: 20 0RF <RACHNA Rojas Filed: 11/21/24 19:45> Follow-up/Referrals: Reji Holly MD [Physician] - (primary care/family practice) UNKNOWN,DOCTOR [Primary Care Provider] - <Shanti Bauman PA-C - Last Filed: 11/21/24 19:45> Time of Disposition: 08:26 <Shanti Bauman PA-C - Last Filed: 11/21/24 19:45> 08:26 <Anastasia Alston MD - Last Filed: 11/22/24 08:53>
[2024-11-20 05:40] VITALS: BP 109/95; PULSE 104; RESP 15; TEMP 38.6; O2SAT 100
[2024-11-20 05:44] VITALS: BP 109/95; PULSE 101; RESP 15; TEMP 38.6; O2SAT 100
[2024-11-20] MEDS: ACETAMINOPHEN 500 MG TABLET 1000 MG PO (05:46)
[2024-11-20] MEDS: SODIUM CHLORIDE 0.9% IV 1,000 ML 999 ML (05:55)
[2024-11-20] MEDS: ONDANSETRON INJ 4 MG/2 ML VIAL IV PUSH (05:55)
[2024-11-20 06:03] VITALS: RESP 20; O2SAT 99
[2024-11-20 06:05] LABS: Basophils Percent Auto 0.4 % (0.2-1.2); Hematocrit 37.4 % (37.0-47.0); Hemoglobin 11.8 g/dL (12.0-15.0); Immature Granulocyte Absolute 0.01 K/mm3 (0.00-0.031); Immature Granulocyte Percent A 0.2 % (0-0.5); Lymphocytes Absolute Auto 0.55 K/mm3 (0.9-3.2); Lymphocytes Percent Auto 10.3 % (18.3-44.2); Mean Corpuscular HGB Conc 31.6 g/dl (32-36); Mean Corpuscular Volume 82.4 fl (80-100); Mean Platelet Volume 9.2 fl (7.4-10.4); Monocytes Absolute Auto 0.5 K/mm3 (0.1-0.6); Monocytes Percent Auto 8.8 % (2.6-8.5); Neutrophils Absolute Auto 4.3 K/mm3 (1.3-6.7); Neutrophils Percent Auto 80.3 % (45.5-73.1); Platelet Count Result 253 k/mm3 (150-375); Red Blood Count 4.54 M/mm3 (4.2-5.4); White Blood Count 5.3 K/mm3 (4.5-10.0)
--- OUTSIDE RECORDS SUMMARY | 2024-11-20 06:09 | XMS_ITS | Clinical Summary ---
Author Organization [facility] Medical Office Building B Address [address] [place] [id number] Care Team Providers Care Brewer Helper Name Role Phone No, Physician Primary Care Provider [phone] Kenisha Schmidt MD Unavailable [phone] Allergies No known active allergies Medications vit 72-xuae-dmpen-dha 27mg iron- 800 mcg-250 mg capsule Take [...] completed Social Barriers: pt main language is Sami but she does speak Micronesian. Pt states she does not need an [...] beta and actual bleeding Will get the costume design teacher Assessment & Plan (06/18/2022 2:15 PM CDT): [...] more drinks on one occasion? Never 06/18/2022 [place] Depression Scale Answer Date Recorded [place] Depression Scale Total 11 07/19/2023 The thought [...] ont Epidur al Livin g Complications:None Delivery Location:[place] 2019 SAB 2020 Term 38w 0d 2.722 kg (6 lb) F Vag-Sp ont Epidur al Livin g Complications:None Delivery Location:[place] [facility] D&C 2022 Term 39w 0d 9h 46m 7h 37m/1h 59m/0h 10m 3.51 kg (7 lb 11.8 oz) M Vagina l Epidur al N Livin g 9 9 HAZIZ I,BOY MISGianna Cool MD Complications:None Delivery Location:[facility] Main C ampus ([facility]) Last Filed Vital Signs Vital Sign [...] HPV HR 16 Not Detected Not Detected [facility] Comment:Testing performed by : [facility], [address] [place]., [address] HPV HR 18 Not Detected Not Detected SURJIT MANNING Comment:Testing performed by : [facility], [address] [place]., [address] HPV HR Non 16/18 Detected(A) Not Detected [...] this test have been verified by the [facility] Molecular Infectious Disease laboratory. Correlate with separately reported cytology results, as applicable. Interpretive data last revised 23 Testing performed by: [facility], [address] [place]., [address] Endocervical 02/14/2024 12:2 8 PM CDT 02/15/2024 9:18 AM CDT Narrative SURJIT MANNING - 02/16/2024 5:47 AM CDT Clinical history and diagnosis->screen Number of vials->1 Testing type->Screening Last menstrual period (date if known)->02/07/2024 Nicki Garcia CNM LAB BODY FLUIDS AND STOOLS ORDERABLES Final Result Performing Organization Address [facility] de Phone Number SURJIT [facility] Department [place] [address] [facility] * N. gonorrhoeae/C. trachomatis Amplification Urine (01/18/2023 12:35 PM CDT) Pathologist [facility] C. trachomatis Not Detected Not Detected [facility] Comment:Testing performed by : [facility], [address] [place] [address]., [address] N. gonorrhoeae Not Detected Not Detected [facility] Comment: Interpretive Data Testing performed by the [facility]. This assay detects Chlamydia trachomatis and Neisseria gonorrhoeae by nucleic acid amplification testing (NAAT). This test is approved by the [facility] Food and Drug Administration and the performance characteristics have been verified by the laboratory. The performance characteristics of this test have not been evaluated in individuals less than 14 years of age. Current Interpretive Data was last revised on 2019. Testing performed by: [facility], [address] [place] [address]., [id number] Urine (None) 01/18/2023 12:3 5 PM CDT 01/18/2023 5:04 PM CDT Nicki Garcia CNM LAB MICROBIOLOGY - GENERAL ORDERABLES Final Result Performing Organization Address [facility] de Phone Number SURJIT [address] [facility] Department [place] [address] * Hepatitis C antibody (01/18/2023 11:45 AM CDT) Pathologist [facility] Hep C Ab Nonreactive Nonreactive [facility] Comment: Interpretive Data Nonreactive: Antibodies [...] - GENERAL ORDERABLES Final Result SURJIT [address] [facility] Department [place] [address] from Last 3 Months or Most Recently Relevant to Health Maintenance Insurance [employer] IDPA Advance Directives For more information, please contact: [phone] * Full Code (Latest Code Status on File) Date Activated Date Inactivated Comments 05/05/2023 11:52 PM 05/07/2023 5:00 PM * Full Code Date Activated Date Inactivated Comments 05/05/2023 9:47 AM 05/05/2023 11:52 PM Full CPR in case of cardiopulmonary arrest Care Teams Brewer Helper Relationship Specialty Start Date End Date No, Physician PCP - General 06/09/22 Kenisha Schmidt MD [address] [place], [place] [id number] Consulting Physician Obstetrics and Gynecology 07/02/22
--- OUTSIDE RECORDS SUMMARY | 2024-11-20 06:10 | XMS_ITS | Referral Summary ---
Author Organization [facility] Address [address] [place] [id number] Care Team Providers Care Motor Assembly Supervisor Name Role Phone No, Physician Primary Care Provider [phone] Kenisha Schmidt MD Unavailable [phone] Allergies No known active allergies Medications vit 40-iqqx-qypth-dha 27mg iron- 800 mcg-250 mg capsule Take [...] completed Social Barriers: pt main language is Yakut but she does speak Polish. Pt states she does not need an [...] beta and actual bleeding Will get the translator/interpreter Assessment & Plan (06/18/2022 2:15 PM CDT): [...] more drinks on one occasion? Never 06/18/2022 [place] Depression Scale Answer Date Recorded [place] Depression Scale Total 11 07/19/2023 The thought [...] HPV HR 16 Not Detected Not Detected [facility] Comment:Testing performed by : [facility], [address] [place]., [address] HPV HR 18 Not Detected Not Detected SURJIT MANNING Comment:Testing performed by : [facility], [address] [place]., [address] HPV HR Non 16/18 Detected(A) Not Detected [...] this test have been verified by the [facility] Molecular Infectious Disease laboratory. Correlate with separately reported cytology results, as applicable. Interpretive data last revised 23 Testing performed by: [facility], [address] [place]., [address] Endocervical 02/14/2024 12:2 8 PM CDT 02/15/2024 9:18 AM CDT Narrative SURJIT MANNING - 02/16/2024 5:47 AM CDT Clinical history and diagnosis->screen Number of vials->1 Testing type->Screening Last menstrual period (date if known)->02/07/2024 [facility]i HERNANDE[facility] BODY FLUIDS AND STOOLS ORDERABLES Final Result Performing Organization Address City/[facility] Co de Phone Number SURJIT [address] [facility] * N. gonorrhoeae/C. trachomatis Amplification Urine (01/18/2023 12:35 PM CDT) C. trachomatis Not Detected Not Detected SURJIT Comment:Testing performed by : [facility], [address] [place] [address]., [id number] N. gonorrhoeae Not Detected Not Detected SURJIT Comment: Interpretive Data Testing performed by the [facility]. This assay detects Chlamydia trachomatis and Neisseria gonorrhoeae by nucleic acid amplification testing (NAAT). This test is approved by the [facility] Food and Drug Administration and the performance characteristics have been verified by the laboratory. The performance characteristics of this test have not been evaluated in individuals less than 14 years of age. Current Interpretive Data was last revised on 2019. Testing performed by: [facility], [address] [place] [address]., [id number] Urine (None) 01/18/2023 12:3 5 PM CDT 01/18/2023 5:04 PM CDT [facility]i HERNANDE[facility] MICROBIOLOGY - GENERAL ORDERABLES Final Result Performing Organization Address [facility] Co de Phone Number SURJIT [address] [place] [address] * Hepatitis C antibody (01/18/2023 11:45 AM [...] Final Result Performing Organization Address City/State/ZIP Co ks Phone Number [facility] [address] [facility] Department [place] [address] from Last 3 Months or Most Recently Relevant to Health Maintenance Insurance IDPA IDPA IDPA Advance Directives For more information, please contact: [phone] * Full Code (Latest Code Status on File) Date Activated Date Inactivated Comments 05/05/2023 11:52 PM 05/07/2023 5:00 PM * Full Code Date Activated Date Inactivated Comments 05/05/2023 9:47 AM 05/05/2023 11:52 PM Full CPR in case of cardiopulmonary arrest Care Teams Motor Assembly Supervisor Relationship Specialty Start Date End Date No, Physician PCP - General 06/09/22 Kenisha Schmidt MD [id number] [place] [address] Consulting Physician Obstetrics and Gynecology 07/02/22
[2024-11-20 06:17] LABS: Alanine Aminotransferase 24 U/L (6-35); Albumin Level 4.8 g/dL (3.5-5.1); Alkaline Phosphatase 60 U/L (38-126); Anion Gap 12 mmol/L (4-12); Aspartate Amino Transferase 24 U/L (14-36); Bilirubin,Total 0.5 mg/dL (0.2-1.3); Blood Urea Nitrogen 12 mg/dL (7-17); Calcium 9.4 mg/dL (8.4-10.2); Carbon Dioxide 24 mmol/L (22-30); Chloride 101 mmol/L (98-107); Estimated CRCL calculation 116 ml/min; Estimated Glomerular Filt Rate > 60; Glucose 95 mg/dL (65-110); Lipase 64 U/L (23-300); Potassium 3.7 mmol/L (3.4-5.0); Sodium 137 mmol/L (137-145)
[2024-11-20 06:40] LABS: Influenza A QL RT-PCR Positive (Negative); Influenza B QL RT-PCR Negative (Negative); RSV RNA, RT-PCR Negative (Negative); SARS-CoV-2 RNA PCR Negative (Negative)
[2024-11-20 07:04] VITALS: BP 117/63; PULSE 73; RESP 18; O2SAT 98
[2024-11-20] MEDS: KETOROLAC 15 MG/ML VIAL (*BKC) IV PUSH (07:27)
[2024-11-20 08:54] VITALS: BP 105/57; PULSE 67; RESP 16; O2SAT 98
== END 2024-11-20 08:56 | disposition home or self-care (01) ==
PROVIDERS: Physician Assistant; Emergency Provider Student in an Organized Health Care Education/Training Program
DX: J10.1 Influenza due to other identified influenza virus with other respiratory manifestations (principal); Z20.822 Contact with and (suspected) exposure to COVID-19
CPT/HCPCS: 36415; 80053; 83690; 85025; 87637; 96361; 96374; 96375; 99284; A9270; J1885; J2405; J7030